=== PATIENT | female | born 1985 | race Caucasian/White ===

== ENCOUNTER 2016-05-01 11:13 | Emergency (ER) | payer OTHER | END 2016-05-01 12:55 | disposition home or self-care (01) | LOC: ER 11:13 | DX: L03.111 Cellulitis of right axilla (principal); B95.62 Methicillin resistant Staphylococcus aureus infection as the cause of diseases classified elsewhere; F32.9 Major depressive disorder, single episode, unspecified; F41.9 Anxiety disorder, unspecified; F42.9 Obsessive-compulsive disorder, unspecified; I10 Essential (primary) hypertension; Z90.710 Acquired absence of both cervix and uterus; Z91.040 Latex allergy status ==

== ENCOUNTER 2016-05-02 10:03 | Emergency (ER) | payer OTHER | END 2016-05-02 11:20 | disposition home or self-care (01) | LOC: ER 10:03 | DX: R11.2 Nausea with vomiting, unspecified (principal); R42 Dizziness and giddiness; F32.9 Major depressive disorder, single episode, unspecified; F41.9 Anxiety disorder, unspecified; F42.9 Obsessive-compulsive disorder, unspecified; I10 Essential (primary) hypertension; Z90.710 Acquired absence of both cervix and uterus; Z91.040 Latex allergy status | CPT/HCPCS: 36415 ==

== ENCOUNTER 2016-05-31 20:04 | Emergency (ER) | payer OTHER | END 2016-06-01 00:50 | disposition short-term general hospital (02) | LOC: ER 20:04 | DX: T43.592A Poisoning by other antipsychotics and neuroleptics, intentional self-harm, initial encounter (principal); T43.012A Poisoning by tricyclic antidepressants, intentional self-harm, initial encounter; I10 Essential (primary) hypertension; F32.9 Major depressive disorder, single episode, unspecified; F41.9 Anxiety disorder, unspecified; F19.10 Other psychoactive substance abuse, uncomplicated; Z90.710 Acquired absence of both cervix and uterus; Z79.899 Other long term (current) drug therapy; Z91.040 Latex allergy status | CPT/HCPCS: 36415; 80307; 96360; 96361; G0480 ==